=== PATIENT | female | born 1980 | race American Indian/Alaskan Native ===

== ENCOUNTER 2018-04-10 05:43 | Inpatient (IN) | payer MEDICAID, OTHER ==
[2018-04-10] MEDS ORDERED: Ondansetron 4 MG/2 ML SDV IV PRN (06:00)
[2018-04-10] MEDS ORDERED: Carboprost Tromethamine 250 MCG/1 ML Amp IM ONE (06:00)
[2018-04-10] MEDS ORDERED: Acetaminophen 325 MG Tab PO PRN (06:00)
[2018-04-10] MEDS ORDERED: Measles, Mumps & Rubella Vaccine 0.5 ML SDV SUBCUT ONE (06:00)
[2018-04-10] MEDS ORDERED: ePHEDrine 50 MG/ML SDV IVPUSH PRN (06:00)
[2018-04-10] MEDS ORDERED: Oxytocin/Normal Saline 30 UNIT/500 ML BAG IV SCH (06:00)
[2018-04-10] MEDS ORDERED: Tranexamic Acid 1,000 MG in Sodium Chloride 0.9% 100 ML IV PRN (06:00)
[2018-04-10] MEDS ORDERED: Misoprostol 400 MCG (4 X 100 MCG TAB) RECTAL PRN (06:00)
[2018-04-10] MEDS ORDERED: Methylergonovine 0.2 MG/1 ML Amp IM PRN (06:00)
[2018-04-10] MEDS ORDERED: ceFAZolin 2 GM in Premix Bag 1 BAG IV ONE (06:00)
[2018-04-10] MEDS ORDERED: Citric Acid/Sodium Citrate Solution 30 ML Cup PO ONE (06:00)
[2018-04-10] MEDS ORDERED: diphenhydrAMINE 50 MG/ML SDV IVPUSH PRN (06:00)
[2018-04-10] MEDS ORDERED: Naloxone 2 MG/2 ML Syringe IVPUSH PRN (06:00)
[2018-04-10] MEDS: Ferrous Sulfate 325 MG Tab PO SCH ×2 (06:03→10:53)
[2018-04-10] MEDS: Prenatal Multivitamin with Calcium/Folic Acid/Iron Tab PO SCH ×2 (06:03→10:53)
[2018-04-10] MEDS: Simethicone 80 MG Tab.Chew PO SCH ×5 (06:03→21:09)
[2018-04-10] MEDS: Lactated Ringers 1,000 ML IV SCH ×3 (06:11→19:28)
[2018-04-10] MEDS ORDERED: Oxytocin/Normal Saline 60 UNIT/1,000 ML BAG ONE (07:16)
[2018-04-10] MEDS ORDERED: Oxytocin/Normal Saline 30 UNIT/500 ML BAG IV ONE (14:49)
[2018-04-10] MEDS ORDERED: Bupivacaine 0.75%/D5W 2 ML Amp INJECT ONE (14:52)
[2018-04-10] MEDS ORDERED: Ondansetron 4 MG/2 ML SDV IV ONE (14:52)
[2018-04-10] MEDS ORDERED: ePHEDrine 50 MG/ML SDV IV ONE (14:52)
[2018-04-10] MEDS ORDERED: Ketorolac 30 MG/ML SDV IVPUSH ONE (14:52)
[2018-04-10] MEDS ORDERED: Dexamethasone 4 MG/ML SDV IV ONE (14:52)
[2018-04-10] MEDS: Ketorolac 30 MG/ML SDV IVPUSH SCH ×2 (14:54→21:08)
--- NOTE | 2018-04-10 15:17 | OBOUT ---
DATE: 04/10/2018 DATE AND TIME OF NST: Date: 04/10/2018. Time: 6:55 to 7:09. REASON FOR NST: 1. Intrauterine 37 and 2/7 weeks, confirmed with 22 and 1/7 weeks' ultrasound. 2. Gestational diabetes mellitus, uncontrolled with medicines with sugar of 94 upon admission. 3. Gestational hypertension versus preeclampsia versus transient hypertension. 4. Previous x3, requests repeat low transverse . 5. Abnormal quad screen. Seen MFM, deferred, wanting further testing other than ultrasound with ultrasound revealing no concerns. 6. Advanced maternal age. 7. ASC-H on Pap smear in this . 8. 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 We will follow up postnatally Urology. 9. G8, P6-0-1-6. NST INTERPRETATION: During this time period, heart tone baseline is approximately 115 to 120, and there are at least two 15 x 15 beats per minute accelerations, making this strip reactive. It is also noted to be reassuring. Tocometer reveals potential two contractions minimally felt by patient. Blood pressure upon admission 157/98, heart rate 82, temperature 97.5. Recheck 151/90 blood pressure with heart rate 83. Other recheck blood pressure 148/95 with a heart rate of 75. Most recent blood pressure 148/84 with heart rate 74. ASSESSMENT: 1. Nonstress test, reactive and reassuring. 2. Tocometer with contractions. PLAN: PIH panels will be ordered. The patient here for her repeat low transverse due to the above risk factors. We will do the PIH panel as well and follow clinically and closely. Her CBC has returned now. CBC reveals white cell count 6.8, hemoglobin 9.8, platelets 347, and her sugar upon admission was 94. We will proceed to the OR as soon as crew is ready and available. Please see H and P for further details as well done through Done.. Records were called for, reviewed, and summarized through this, as well as review of systems obtained. Please see a scanned in H and P for further details. [facility] /[id number]
[2018-04-10] MEDS: Acetaminophen/oxyCODONE 325-5 MG Tab PO PRN (19:36)
[2018-04-10] MEDS: Docusate Sodium 100 MG Cap PO PRN (21:09)
[2018-04-11] MEDS: Lactated Ringers 1,000 ML IV SCH (02:54)
[2018-04-11] MEDS: Ketorolac 30 MG/ML SDV IVPUSH SCH (02:55)
--- NOTE | 2018-04-11 09:08 | PCM.PNPP ---
- General Info Date of Service: 04/11/18 [facility] Subjective Update: Ber[facility] is POD1 from [facility] without labor. She had gHTN and gDM which was poorly controlled. She is doing well post surgery. She has been out of bed. Her thorne has not been removed. Pain controlled with narcotic pain medication. No bowel movements. Lochia normal in amount. No headaches, vision changes, chest pain, shortness of breath, leg swelling. Functional Status: Reports: Pain Controlled - General Info Date of Service: 04/11/18 - Patient Data Vital Signs - Most Recent: Last Vital Signs Temp 36.9 C 04/11/18 08:00 Pulse 71 04/11/18 08:00 Resp 18 04/11/18 08:00 BP 114/71 04/11/18 08:00 Pulse Ox 97 04/11/18 08:00 Weight - Most Recent: 100.698 kg I&O - Last 24 Hours: Intake & Output 04/10/18 04/11/18 04/11/18 22:59 06:59 14:59 Intake Total 1400 Output Total 1300 325 Balance 100 -325 Lab Results - Last 24 Hours: Laboratory Results - last 24 hr 04/10/18 04/11/18 Range/Units 08:26 06:00 WBC 9.3 (5.0-10.0) 10^3/uL RBC 3.36 L (4.2-5.4) 10^6/uL Hgb 8.1 L D (12.0-16.0) g/dL Hct 26.4 L (37.0-47.0) % MCV 78.6 L (80-100) fL MCH 24.1 L (27.0-34.0) pg MCHC 30.7 L (33.0-35.0) g/dL Plt Count 291 (150-450) 10^3/uL Urine Color Yellow (YELLOW) Urine Appearance Clear (CLEAR) Urine pH 7.0 (5.0-9.0) Ur Specific Pettus 1.015 (1.005-1.030) Urine Protein Negative (NEGATIVE) Urine Glucose (UA) Negative (NEGATIVE) Urine Ketones Negative (NEGATIVE) Urine Occult Blood Negative (NEGATIVE) Urine Nitrite Negative (NEGATIVE) Urine Bilirubin Negative (NEGATIVE) Urine Urobilinogen 1.0 (0.2-1.0) mg/dL Ur Leukocyte Esterase Negative (NEGATIVE) Med Orders - Current: Current Medications Acetaminophen (Tylenol) 650 mg PO Q6H PRN PRN Reason: mild pain or fever Diphenhydramine HCl (Benadryl) 25 mg IVPUSH Q6H PRN PRN Reason: Itching or Nausea Docusate Sodium (Colace) 100 mg PO Q12H PRN PRN Reason: Constipation Last Admin: 04/10/18 21:09 Dose: 100 mg Ephedrine Sulfate (Ephedrine Sulfate) 5 mg IVPUSH SEECOMMENT PRN PRN Reason: Other Ferrous Sulfate (Ferrous Sulfate) 325 mg PO BRK [facility] Last Admin: 04/10/18 10:53 Dose: Not Given Lactated Ringer's (Ringers, Lactated) 1,000 mls @ 125 mls/hr IV ASDIRECTED [facility] Last Admin: 04/11/18 02:54 Dose: 125 mls/hr Oxytocin/Sodium Chloride (Pitocin In Ns 30 Unit/500 Ml) 30 unit in 500 mls @ 500 mls/hr IV TITRATE [facility]; Protocol Last Titration: 04/10/18 12:45 Dose: 0 munits/min, 0 mls/hr Tranexamic Acid 1,000 mg/ (Sodium Chloride) 110 mls @ 660 mls/hr IV ONETIME PRN PRN Reason: Bleeding Ibuprofen (Motrin) 800 mg PO Q8H PRN PRN Reason: mild pain or fever Methylergonovine Maleate (Methergine) 0.2 mg IM ONETIME PRN PRN Reason: Excessive Vaginal Bleeding Misoprostol (Cytotec) 800 mcg RECTAL ASDIRECTED PRN PRN Reason: Excessive bleeding Naloxone HCl (Narcan) 0.1 mg IVPUSH SEECOMMENT PRN PRN Reason: Respiratory Depression Ondansetron HCl (Zofran) 4 mg IV Q4H PRN PRN Reason: Nausea/Vomiting Oxycodone/Acetaminophen (Percocet 325-5 Mg) 1 tab PO Q4H PRN PRN Reason: Pain (moderate 4-6) Last Admin: 04/10/18 19:36 Dose: 1 tab Oxycodone/Acetaminophen (Percocet 325-5 Mg) 2 tab PO Q4H PRN PRN Reason: Pain (moderate 4-6) Prenat Multivit/Barry/Iron/Folic Ac ( Plus Iron) 1 each PO DAILY [facility] Last Admin: 04/10/18 10:53 Dose: Not Given Simethicone (Simethicone) 160 mg PO QID [facility] Last Admin: 04/10/18 21:09 Dose: 160 mg Discontinued Medications Bupivacaine HCl/Dextrose (Marcaine 0.75% Spinal) 2 ml INJECT .STK-MED ONE Stop: 04/10/18 14:53 Carboprost Tromethamine (Hemabate Ds) 250 mcg IM ONETIME ONE Stop: 04/10/18 06:01 Last Admin: 04/10/18 21:29 Dose: Not Given Citric Acid/Sodium Citrate (Bicitra Solution) 30 ml PO ONETIME ONE Stop: 04/10/18 06:01 Last Admin: 04/10/18 07:17 Dose: 30 ml Dexamethasone (Dexamethasone) 8 mg IV .STK-MED ONE Stop: 04/10/18 14:53 Ephedrine Sulfate (Ephedrine Sulfate) 20 mg IV .STK-MED ONE Stop: 04/10/18 14:53 Cefazolin Sodium/Dextrose 2 gm (/ Premix) 50 mls @ 100 mls/hr IV ONETIME ONE Stop: 04/10/18 06:29 Last Admin: 04/10/18 08:15 Dose: 100 mls/hr Oxytocin/Sodium Chloride (Pitocin In Ns 30 Unit/500 Ml) Confirm Administered Dose 60 unit in 1,000 mls @ as directed .ROUTE .STK-MED ONE Stop: 04/10/18 07:17 Oxytocin/Sodium Chloride (Pitocin In Ns 30 Unit/500 Ml) 30 unit in 500 mls @ as directed IV .STK-MED ONE Stop: 04/10/18 14:50 Ketorolac Tromethamine (Toradol) 15 mg IVPUSH Q6H [facility] Stop: 04/11/18 03:01 Last Admin: 04/11/18 02:55 Dose: 15 mg Ketorolac Tromethamine (Toradol) 30 mg IVPUSH .STK-MED ONE Stop: 04/10/18 14:53 Lidocaine HCl (Xylocaine-Mpf 1%) 1 ml .XX .STK-MED ONE Stop: 04/10/18 14:53 Measles/Mumps/Rubella Vaccine Live (M-M-R Ii Vaccine) 0.5 ml SUBCUT .ONCE ONE Stop: 04/10/18 06:01 Ondansetron HCl (Zofran) 4 mg IV .STK-MED ONE Stop: 04/10/18 14:53 Sodium Bicarbonate (Sodium Bicarbonate 4.2%) 0.5 meq .XX .STK-MED ONE Stop: 04/10/18 14:53 - Infant Interaction Disposition, : Sharon to Nursery Support Person: Significant Other - Recovery Exam Fundal Tone: Firm Fundal Level: At Umbilicus Fundal Placement: Midline Lochia Amount: Small Lochia Color: Rubra/Red Perineum Description: Intact, Minimal Bruising/Swelling Episiotomy/Laceration: None Bladder Status: Nonpalpable, Indwelling Catheter in Place Urinary Elimination: Indwelling Catheter - Exam General: Alert, Oriented HEENT: Pupils Equal Neck: Supple Lungs: Clear to Auscultation, Normal Respiratory Effort Cardiovascular: Regular Rate, Regular Rhythm GI/Abdominal Exam: Normal Bowel Sounds, Soft, Non-Tender, No Organomegaly, No Distention, No Abnormal Bruit, No Mass, Pelvis Stable Extremities: Normal Inspection, Normal Range of Motion, Non-Tender, No Pedal Edema, Normal Capillary Refill Skin: Warm, Dry, Intact Wound/Incisions: Healing Well, Dressing Dry and Intact Neurological: No New Focal Deficit Psy/Mental Status: Alert, Normal Affect, Normal Mood - Problem List Review Problem List Initiated/Reviewed/Updated: Yes - Assessment Assessment:: POD1 rLTCS gDM gHTN - Plan Plan:: POD1 rLTCS Routine post op cares Remove thorne today Encourage ambulation Patient is not nursing Pain control with narcotic/ibuprofen/tylenol Post op hemoglobin 8.1, start iron, recheck in 2 days gDM Will check fasting sugar tomorrow AM gHTN Resolved post , monitor
[2018-04-11] MEDS: Acetaminophen/oxyCODONE 325-5 MG Tab PO PRN ×2 (09:53→16:56)
[2018-04-11] MEDS: Prenatal Multivitamin with Calcium/Folic Acid/Iron Tab PO SCH (09:55)
[2018-04-11] MEDS: Ferrous Sulfate 325 MG Tab PO SCH (09:55)
[2018-04-11] MEDS: Simethicone 80 MG Tab.Chew PO SCH ×4 (09:56→20:43)
[2018-04-11] MEDS: Ibuprofen 800 MG Tab PO PRN ×2 (11:13→19:38)
--- NOTE | 2018-04-11 17:05 | PN ---
DATE: 04/11/2018 The patient is postoperative day #1 from her fourth repeat . The patient also had gestational diabetes and was on metformin. I did see this patient in conjunction with resident Dr. Grimm. The patient is now tolerating p.o., ambulating, voiding, has good pain control. She is already on iron for anemia. The patient does still desire fertility. PHYSICAL EXAMINATION: Vital Signs: The patient is afebrile. Heart rate 69 to 71, blood pressure 95 to 124 over 60 to 72, respiratory rate 16 to 18, O2 saturation 97%. The patient's hemoglobin is 8.1 from 9.8 predelivery consistent with acute on chronic blood loss anemia. The patient's platelets are good, white count is 9.3. The patient is O positive. Rubella nonimmune. The patient's. ABDOMEN: Benign. Incision is healing well. ASSESSMENT AND PLAN: Postoperative day #1, status post repeat . Mom and baby are both doing well. I would like to get at least 1 postprandial blood sugar today and a fasting blood glucose tomorrow to see how her sugars are controlled since the metformin has been stopped, otherwise we will continue postoperative care. [facility] /[id number] ZAIN
[2018-04-12] MEDS: Acetaminophen/oxyCODONE 325-5 MG Tab PO PRN ×5 (00:03→23:32)
--- NOTE | 2018-04-12 05:31 | PCM.PNPP ---
- General Info Date of Service: 04/12/18 [facility] Subjective Update: Beronica is POD2 from [facility] without labor. She had gHTN and gDM which was poorly controlled. She is doing well post surgery. She has been out of bed. Her thorne has been removed. Pain controlled with narcotic pain medication. No bowel movements. Lochia normal in amount. No headaches, vision changes, chest pain, shortness of breath, leg swelling. Sugars have been good post as has her BP. Functional Status: Reports: Pain Controlled - Patient Data Vital Signs - Most Recent: Last Vital Signs Temp 36.6 C 04/12/18 00:00 Pulse 77 04/12/18 00:00 Resp 18 04/12/18 00:00 BP 122/67 04/12/18 00:00 Pulse Ox 97 04/12/18 00:00 Weight - Most Recent: 100.698 kg I&O - Last 24 Hours: Intake & Output 04/11/18 04/11/18 04/12/18 14:59 22:59 06:59 Intake Total 690 Output Total 700 Balance -10 Lab Results - Last 24 Hours: Laboratory Results - last 24 hr 04/11/18 04/11/18 Range/Units 06:00 21:32 WBC 9.3 (5.0-10.0) 10^3/uL RBC 3.36 L (4.2-5.4) 10^6/uL Hgb 8.1 L D (12.0-16.0) g/dL Hct 26.4 L (37.0-47.0) % MCV 78.6 L (80-100) fL MCH 24.1 L (27.0-34.0) pg MCHC 30.7 L (33.0-35.0) g/dL Plt Count 291 (150-450) 10^3/uL POC Glucose 85 (70-105) mg/dl Med Orders - Current: Current Medications Acetaminophen (Tylenol) 650 mg PO Q6H PRN PRN Reason: mild pain or fever Diphenhydramine HCl (Benadryl) 25 mg IVPUSH Q6H PRN PRN Reason: Itching or Nausea Docusate Sodium (Colace) 100 mg PO Q12H PRN PRN Reason: Constipation Last Admin: 04/10/18 21:09 Dose: 100 mg Ephedrine Sulfate (Ephedrine Sulfate) 5 mg IVPUSH SEECOMMENT PRN PRN Reason: Other Ferrous Sulfate (Ferrous Sulfate) 325 mg PO BRK [facility] Last Admin: 04/11/18 09:55 Dose: 325 mg Lactated Ringer's (Ringers, Lactated) 1,000 mls @ 125 mls/hr IV ASDIRECTED [facility] Last Infusion: 04/11/18 13:01 Dose: Infused Oxytocin/Sodium Chloride (Pitocin In Ns 30 Unit/500 Ml) 30 unit in 500 mls @ 500 mls/hr IV TITRATE [facility]; Protocol Last Titration: 04/10/18 12:45 Dose: 0 munits/min, 0 mls/hr Tranexamic Acid 1,000 mg/ (Sodium Chloride) 110 mls @ 660 mls/hr IV ONETIME PRN PRN Reason: Bleeding Ibuprofen (Motrin) 800 mg PO Q8H PRN PRN Reason: mild pain or fever Last Admin: 04/11/18 19:38 Dose: 800 mg Methylergonovine Maleate (Methergine) 0.2 mg IM ONETIME PRN PRN Reason: Excessive Vaginal Bleeding Misoprostol (Cytotec) 800 mcg RECTAL ASDIRECTED PRN PRN Reason: Excessive bleeding Naloxone HCl (Narcan) 0.1 mg IVPUSH SEECOMMENT PRN PRN Reason: Respiratory Depression Ondansetron HCl (Zofran) 4 mg IV Q4H PRN PRN Reason: Nausea/Vomiting Oxycodone/Acetaminophen (Percocet 325-5 Mg) 1 tab PO Q4H PRN PRN Reason: Pain (moderate 4-6) Last Admin: 04/11/18 16:56 Dose: 1 tab Oxycodone/Acetaminophen (Percocet 325-5 Mg) 2 tab PO Q4H PRN PRN Reason: Pain (moderate 4-6) Last Admin: 04/12/18 00:03 Dose: 2 tab Prenat Multivit/Donley/Iron/Folic Ac ( Plus Iron) 1 each PO DAILY [facility] Last Admin: 04/11/18 09:55 Dose: 1 each Simethicone (Simethicone) 160 mg PO QID [facility] Last Admin: 04/11/18 20:43 Dose: 160 mg Discontinued Medications Bupivacaine HCl/Dextrose (Marcaine 0.75% Spinal) 2 ml INJECT .STK-MED ONE Stop: 04/10/18 14:53 Carboprost Tromethamine (Hemabate Ds) 250 mcg IM ONETIME ONE Stop: 04/10/18 06:01 Last Admin: 04/10/18 21:29 Dose: Not Given Citric Acid/Sodium Citrate (Bicitra Solution) 30 ml PO ONETIME ONE Stop: 04/10/18 06:01 Last Admin: 04/10/18 07:17 Dose: 30 ml Dexamethasone (Dexamethasone) 8 mg IV .STK-MED ONE Stop: 04/10/18 14:53 Ephedrine Sulfate (Ephedrine Sulfate) 20 mg IV .STK-MED ONE Stop: 04/10/18 14:53 Cefazolin Sodium/Dextrose 2 gm (/ Premix) 50 mls @ 100 mls/hr IV ONETIME ONE Stop: 04/10/18 06:29 Last Admin: 04/10/18 08:15 Dose: 100 mls/hr Oxytocin/Sodium Chloride (Pitocin In Ns 30 Unit/500 Ml) Confirm Administered Dose 60 unit in 1,000 mls @ as directed .ROUTE .STK-MED ONE Stop: 04/10/18 07:17 Oxytocin/Sodium Chloride (Pitocin In Ns 30 Unit/500 Ml) 30 unit in 500 mls @ as directed IV .STK-MED ONE Stop: 04/10/18 14:50 Ketorolac Tromethamine (Toradol) 15 mg IVPUSH Q6H [facility] Stop: 04/11/18 03:01 Last Admin: 04/11/18 02:55 Dose: 15 mg Ketorolac Tromethamine (Toradol) 30 mg IVPUSH .STK-MED ONE Stop: 04/10/18 14:53 Lidocaine HCl (Xylocaine-Mpf 1%) 1 ml .XX .STK-MED ONE Stop: 04/10/18 14:53 Measles/Mumps/Rubella Vaccine Live (M-M-R Ii Vaccine) 0.5 ml SUBCUT .ONCE ONE Stop: 04/10/18 06:01 Ondansetron HCl (Zofran) 4 mg IV .STK-MED ONE Stop: 04/10/18 14:53 Sodium Bicarbonate (Sodium Bicarbonate 4.2%) 0.5 meq .XX .STK-MED ONE Stop: 04/10/18 14:53 - Infant Interaction Disposition, : Tinnie to Nursery Support Person: Significant Other - Recovery Exam Fundal Tone: Firm Fundal Level: At Umbilicus Fundal Placement: Midline Lochia Amount: Small Lochia Color: Rubra/Red Perineum Description: Intact, Minimal Bruising/Swelling Episiotomy/Laceration: None Bladder Status: Nonpalpable Urinary Elimination: Voided - Exam General: Alert, Oriented HEENT: Pupils Equal Neck: Supple Lungs: Clear to Auscultation, Normal Respiratory Effort Cardiovascular: Regular Rate, Regular Rhythm GI/Abdominal Exam: Normal Bowel Sounds, Soft, Non-Tender, No Organomegaly, No Distention, No Abnormal Bruit, No Mass, Pelvis Stable Extremities: Normal Inspection, Normal Range of Motion, Non-Tender, No Pedal Edema, Normal Capillary Refill Skin: Warm, Dry, Intact Wound/Incisions: Healing Well Neurological: No New Focal Deficit Psy/Mental Status: Alert, Normal Affect, Normal Mood - Problem List & Annotations (1) Status post repeat low transverse section SNOMED Code(s): 046757867, 155592823, 750487406, 289654287 Code(s): Z98.891 - HISTORY OF UTERINE SCAR FROM PREVIOUS SURGERY Status: Acute Current Visit: Yes (2) Gestational diabetes SNOMED Code(s): 51035605 Code(s): O24.419 - GESTATIONAL DIABETES MELLITUS IN , UNSP CONTROL Status: Acute Current Visit: Yes (3) Gestational hypertension SNOMED Code(s): 44558769 Code(s): O13.9 - GESTATIONAL HTN W/O SIGNIFICANT PROTEINURIA, UNSP TRIMESTER Status: Acute Current Visit: Yes - Problem List Review Problem List Initiated/Reviewed/Updated: Yes - My Orders Last 24 Hours: My Active Orders 04/11/18 09:22 POC Glucose [Blood Glucose Check, Bedside] [] TIDAC - Assessment Assessment:: POD2 rLTCS gDM gHTN - Plan Plan:: POD2 rLTCS Routine post op cares Encourage ambulation Patient is not nursing Pain control with narcotic/ibuprofen/tylenol Post op hemoglobin 8.1, start iron, recheck tomorrow gDM Sugars have been good, will check fasting this morning gHTN Resolved post , monitor
[2018-04-12] MEDS: Ferrous Sulfate 325 MG Tab PO SCH (09:18)
[2018-04-12] MEDS: Prenatal Multivitamin with Calcium/Folic Acid/Iron Tab PO SCH (09:19)
[2018-04-12] MEDS: Ibuprofen 800 MG Tab PO PRN (09:19)
[2018-04-12] MEDS: Simethicone 80 MG Tab.Chew PO SCH ×4 (09:19→21:15)
[2018-04-12] MEDS: Docusate Sodium 100 MG Cap PO PRN (09:19)
--- NOTE | 2018-04-12 15:41 | PN ---
DATE: 04/12/2018 SUBJECTIVE: The patient is now postoperative day #2 from a repeat . This is her fourth . Her and baby are both doing well. Her was complicated by gestational diabetes. She did use metformin but has been off that since delivery. The patient is now tolerating p.o., ambulating, voiding, has good pain control. PHYSICAL EXAMINATION: Vital Signs: The patient is on physical exam, afebrile, heart rate 77 and 93, blood pressure 106 to 123 over 67 to 88, respiratory rate 16 to 18, O2 saturation 97-98% on room air. The patient did have a postprandial blood glucose performed yesterday which was 85 and a fasting blood glucose which is 75 this morning, both of which are normal. The patient is O positive. She is rubella nonimmune. Again postoperative hemoglobin yesterday was 8.1, and she is on iron. Abdomen: Benign. The dressing appears well. Extremities: Have no tenderness, no edema. ASSESSMENT AND PLAN: Postoperative day #2, status post repeat with resolving gestational diabetes, likely discharge this patient to home tomorrow, and otherwise continue postoperative care. [facility] /[id number]
[2018-04-13] MEDS: Docusate Sodium 100 MG Cap PO PRN (04:29)
[2018-04-13] MEDS: Acetaminophen/oxyCODONE 325-5 MG Tab PO PRN ×2 (04:29→08:50)
--- NOTE | 2018-04-13 07:28 | OR ---
DATE: 04/10/2018 PREOPERATIVE DIAGNOSES: 1. Intrauterine at 37 and 2/7 weeks, confirmed with 22 and 1/7 weeks' ultrasound. 2. Gestational diabetes mellitus-uncontrolled despite medications with blood sugar 94 upon admission. 3. Gestational hypertension versus preeclampsia. Labs pending. 4. Previous x3, request for repeat low transverse . 5. Abnormal quad screen, deferred amniocentesis and NIPS with ultrasound with MFM without concerns. 6. Advanced maternal age. 7. ASC-H on Pap smear this last year. 8. 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 9. Rubella nonimmune. 10.Group B Streptococcus negative. 11. 8, para 6-0-1-6. POSTOPERATIVE DIAGNOSES: 1. Intrauterine at 37 and 2/7 weeks, confirmed with 22 and 1/7 weeks' ultrasound, delivered. 2. Gestational diabetes mellitus-uncontrolled despite medications with blood sugar 94 upon admission. 3. Gestational hypertension versus preeclampsia. Labs pending. 4. Previous x3, request repeat for low transverse . 5. Abnormal quad screen, deferred amniocentesis and NIPS with ultrasound with MFM without concerns. 6. Advanced maternal age. 7. ASC-H on Pap smear this last year. 8. 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 9. Rubella nonimmune. 10.Group B Streptococcus negative. 11. 8, para 6-0-1-6. 12.Thin lower uterine segment, window noted. 13.Nuchal cord x1, reduced bluntly at delivery. PROCEDURE PERFORMED: NST followed by repeat low transverse . ASSISTANTS: 1. Gladys Ulloa MD. 2. Yamilet Grimm PGY-3. ANESTHESIA: Spinal. ESTIMATED BLOOD LOSS: 300 mL. IV FLUIDS: 900 mL lactated Ringer's and 300 mL of Pitocin. URINE OUTPUT: 450 mL clear yellow. START: 0832 hours. UTERINE INCISION: 0836 hours. DELIVERY: 0836 hours. STOP: 0857 hours. FINDING: Male, scores of 7 and 8. Weight pending. DESCRIPTION OF PROCEDURE IN DETAIL: After proper consent was obtained, the patient was brought to the operating room where spinal anesthetic was administered. A Marrero was placed in the preop under sterile conditions. Abdomen was prepped and draped in normal sterile fashion, placed the patient in supine position with left lateral tilt. A skin incision was then made over lower abdomen transverse Pfannenstiel-type fashion. This was carried down the fascia and scored in the midline. The subcutaneous tissue was raked laterally bluntly, and fascial incision was extended in transverse fashion using electrocautery. Malinda clamps x2 used to grasp the superior aspect of the fascia and rectus muscles were dissected from the fascia using sharp and blunt technique. In a similar fashion, Malinda clamps x2 used to grasp the inferior portion of the incision; and rectus and pyramidalis muscles were dissected from the fascia using sharp and blunt technique. Rectus muscles were in the midline with blunt technique. Abdominal cavity was entered in blunt technique. Incision was extended superiorly and inferiorly with blunt technique. Zain O large retractor was then introduced and used. The lower uterine segment was identified with a very thin lower uterine segment with window being able to see vertex and hair. Incision was made on lower uterine segment at 0836 hours. Uterus was entered sharply. Clear fluid returned. The uterine incision was extended in transverse fashion using blunt technique. vertex was then delivered through the incision followed by rest of the infant with nuchal cord x1, reduced bluntly at delivery. Mouth and nares were suctioned on the patient's lap. Cord was doubly clamped and cut, and the infant was brought over to team. Then, approximately 10 mL of cord blood was obtained for labs. Placenta was then delivered with gentle cord traction and fundal massage. The uterine cavity was cleared of all blood clots and debris with a lap sponge. Sanders clamps used to grasp the uterine incision and this was closed in a running locked fashion and tied at lateral margins with 1-0 Vicryl. First inspection of the uterine incision revealed hemostasis. Zain O retractor was then removed, and paracolic gutters were then cleared of all blood clots and debris with lap sponge. Anterior cul-de-sac was then irrigated copiously and all blood clots and debris were removed. Second inspection of the uterine incision and anterior cul-de-sac revealed hemostasis. Rectus muscles were then reapproximated in midline with [id number] stitch using 1-0 Vicryl. Subfascial tissue was found to be hemostatic. Fascia closed in a running fashion and tied at lateral margins with 0 looped PDS. Subcutaneous tissue irrigated copiously, hemostasis reassured. Skin was reapproximated with medium kyrie. Sterile Aquacel dressing was applied. Uterine fundus was firm and massaged at the conclusion of the case at -1 below umbilicus. No immediate complications were noted. Sponge, lap, needle counts were correct. The patient received 2 g of Ancef preoperatively, as well as Pitocin per protocol. Toradol will be given at conclusion of the case for pain control. Mother and are currently stable. [facility] /[id number] ZAIN
--- NOTE | 2018-04-13 07:46 | PCM.DCSUM1 ---
<Yamilet Grimm - Last Filed: 04/13/18 07:41> Discharge Summary - Hospital Course Free Text/Narrative:: Beronica is POD3 from [facility] at 37w2d for uncontrolled gDM and gHTN. Since delivery her blood sugars and blood pressures have been well controlled. Her post- course has not been complicated. She is eating, drinking and ambulating well. Incisional pain is well controlled. She is not breast feeding. Bowel function has returned. No leg swelling. She does have a mild headache which is in her neck and worse when she sits up but this comes and goes. Bleeding is well controlled. - Discharge Data Discharge Date: 04/13/18 Discharge Disposition: Home, Self-Care 01 Condition: Good - Discharge Diagnosis/Problem(s) (1) Status post repeat low transverse section SNOMED Code(s): 759268074, [id number], [id number], [id number] ICD Code: Z98.891 - HISTORY OF UTERINE SCAR FROM PREVIOUS SURGERY Status: Acute Current Visit: Yes (2) Gestational diabetes SNOMED Code(s): 11077196 ICD Code: O24.419 - GESTATIONAL DIABETES MELLITUS IN , UNSP CONTROL Status: Acute Current Visit: Yes (3) Gestational hypertension SNOMED Code(s): 61067949 ICD Code: O13.9 - GESTATIONAL HTN W/O SIGNIFICANT PROTEINURIA, UNSP TRIMESTER Status: Acute Current Visit: Yes - Patient Summary/Data Operative Procedure(s) Performed: [facility] Labs Pending at D/C: cbc - Patient Instructions Diet: Regular Diet as Tolerated Activity: As Tolerated Showering/Bathing: May Shower Wound/Incision Care: Keep Operative Site/Wound Site Clean and Dry Notify Provider of: Fever, Increased Pain, Swelling and Redness, Drainage, Nausea and/or Vomiting - Discharge Plan Home Medications: Home Meds PNV95/Ferrous Fumarate/FA [Prenavite Tablet] 1 each PO DAILY 03/26/18 [History] metFORMIN [Glucophage XR] 1,000 mg PO BID 03/26/18 [History] Patient Handouts: Delivery, Care After - Discharge Summary/Plan Comment Discharge Summary/Plan Comment: Routine post-op and post cares discussed with patient Return to clinic in 2 weeks for incision check Discussed signs/symptoms that would prompt earlier follow up. Ferrous sulfate QOD for post- anemia. gHTN and gDM: resolved post . Yamilet Grimm MD PGYIII - Patient Data Vitals - Most Recent: Last Vital Signs Temp 36.4 C 04/13/18 04:00 Pulse 106 H 04/13/18 04:00 Resp 16 04/13/18 04:00 BP 126/81 04/13/18 04:00 Pulse Ox 95 04/13/18 04:00 Weight - Most Recent: 100.698 kg I&O - Last 24 hours: Intake & Output 04/12/18 04/13/18 04/13/18 22:59 06:59 14:59 Intake Total 400 Balance 400 Med Orders - Current: Current Medications Acetaminophen (Tylenol) 650 mg PO Q6H PRN PRN Reason: mild pain or fever Diphenhydramine HCl (Benadryl) 25 mg IVPUSH Q6H PRN PRN Reason: Itching or Nausea Docusate Sodium (Colace) 100 mg PO Q12H PRN PRN Reason: Constipation Last Admin: 04/13/18 04:29 Dose: 100 mg Ephedrine Sulfate (Ephedrine Sulfate) 5 mg IVPUSH SEECOMMENT PRN PRN Reason: Other Ferrous Sulfate (Ferrous Sulfate) 325 mg PO BRK ALIE Last Admin: 04/12/18 09:18 Dose: 325 mg Lactated Ringer's (Ringers, Lactated) 1,000 mls @ 125 mls/hr IV ASDIRECTED ALIE Last Infusion: 04/11/18 13:01 Dose: Infused Oxytocin/Sodium Chloride (Pitocin In Ns 30 Unit/500 Ml) 30 unit in 500 mls @ 500 mls/hr IV TITRATE ALIE; Protocol Last Titration: 04/10/18 12:45 Dose: 0 munits/min, 0 mls/hr Tranexamic Acid 1,000 mg/ (Sodium Chloride) 110 mls @ 660 mls/hr IV ONETIME PRN PRN Reason: Bleeding Ibuprofen (Motrin) 800 mg PO Q8H PRN PRN Reason: mild pain or fever Last Admin: 04/12/18 09:19 Dose: 800 mg Methylergonovine Maleate (Methergine) 0.2 mg IM ONETIME PRN PRN Reason: Excessive Vaginal Bleeding Misoprostol (Cytotec) 800 mcg RECTAL ASDIRECTED PRN PRN Reason: Excessive bleeding Naloxone HCl (Narcan) 0.1 mg IVPUSH SEECOMMENT PRN PRN Reason: Respiratory Depression Ondansetron HCl (Zofran) 4 mg IV Q4H PRN PRN Reason: Nausea/Vomiting Oxycodone/Acetaminophen (Percocet 325-5 Mg) 1 tab PO Q4H PRN PRN Reason: Pain (moderate 4-6) Last Admin: 04/11/18 16:56 Dose: 1 tab Oxycodone/Acetaminophen (Percocet 325-5 Mg) 2 tab PO Q4H PRN PRN Reason: Pain (moderate 4-6) Last Admin: 04/13/18 04:29 Dose: 2 tab Prenat Multivit/Wire Basket Maker/Iron/Folic Ac ( Plus Iron) 1 each PO DAILY [facility] Last Admin: 04/12/18 09:19 Dose: 1 each Simethicone (Simethicone) 160 mg PO QID [facility] Last Admin: 04/12/18 21:15 Dose: Not Given Discontinued Medications Bupivacaine HCl/Dextrose (Marcaine 0.75% Spinal) 2 ml INJECT .STK-MED ONE Stop: 04/10/18 14:53 Carboprost Tromethamine (Hemabate Ds) 250 mcg IM ONETIME ONE Stop: 04/10/18 06:01 Last Admin: 04/10/18 21:29 Dose: Not Given Citric Acid/Sodium Citrate (Bicitra Solution) 30 ml PO ONETIME ONE Stop: 04/10/18 06:01 Last Admin: 04/10/18 07:17 Dose: 30 ml Dexamethasone (Dexamethasone) 8 mg IV .STK-MED ONE Stop: 04/10/18 14:53 Ephedrine Sulfate (Ephedrine Sulfate) 20 mg IV .STK-MED ONE Stop: 04/10/18 14:53 Cefazolin Sodium/Dextrose 2 gm (/ Premix) 50 mls @ 100 mls/hr IV ONETIME ONE Stop: 04/10/18 06:29 Last Admin: 04/10/18 08:15 Dose: 100 mls/hr Oxytocin/Sodium Chloride (Pitocin In Ns 30 Unit/500 Ml) Confirm Administered Dose 60 unit in 1,000 mls @ as directed .ROUTE .STK-MED ONE Stop: 04/10/18 07:17 Oxytocin/Sodium Chloride (Pitocin In Ns 30 Unit/500 Ml) 30 unit in 500 mls @ as directed IV .STK-MED ONE Stop: 04/10/18 14:50 Ketorolac Tromethamine (Toradol) 15 mg IVPUSH Q6H ALIE Stop: 04/11/18 03:01 Last Admin: 04/11/18 02:55 Dose: 15 mg Ketorolac Tromethamine (Toradol) 30 mg IVPUSH .STK-MED ONE Stop: 04/10/18 14:53 Lidocaine HCl (Xylocaine-Mpf 1%) 1 ml .XX .STK-MED ONE Stop: 04/10/18 14:53 Measles/Mumps/Rubella Vaccine Live (M-M-R Ii Vaccine) 0.5 ml SUBCUT .ONCE ONE Stop: 04/10/18 06:01 Last Admin: 04/12/18 19:36 Dose: 0.5 ml Ondansetron HCl (Zofran) 4 mg IV .STK-MED ONE Stop: 04/10/18 14:53 Sodium Bicarbonate (Sodium Bicarbonate 4.2%) 0.5 meq .XX .STK-MED ONE Stop: 04/10/18 14:53 - Exam General: Reports: Alert, Oriented HEENT: Reports: Pupils Equal, Pupils Reactive, EOMI, Mucous Membr. Moist/[place] Neck: Reports: Supple Lungs: Reports: Clear to Auscultation, Normal Respiratory Effort Cardiovascular: Reports: Regular Rate, Regular Rhythm GI/Abdominal Exam: Normal Bowel Sounds, Soft, Non-Tender, No Organomegaly, No Distention, No Abnormal Bruit, No Mass Back Exam: Reports: Normal Inspection, Full Range of Motion Extremities: Normal Inspection, Normal Range of Motion, Non-Tender, No Pedal Edema, Normal Capillary Refill Skin: Reports: Warm, Dry, Intact Wound/Incisions: Reports: Healing Well, Dressing Dry and Intact Neurological: Reports: No New Focal Deficit Psy/Mental Status: Reports: Alert, Normal Affect, Normal Mood <Nicko Bowie - Last Filed: 04/13/18 08:39> Discharge Summary - Hospital Course Free Text/Narrative:: seen and agreed-DCW. - Patient Data Vitals - Most Recent: Last Vital Signs Temp 97.5 F 04/13/18 04:00 Pulse 106 H 04/13/18 04:00 Resp 16 04/13/18 04:00 BP 126/81 04/13/18 04:00 Pulse Ox 95 04/13/18 04:00 I&O - Last 24 hours: Intake & Output 04/12/18 04/13/18 04/13/18 22:59 06:59 14:59 Intake Total 400 Balance 400 Med Orders - Current: Current Medications Acetaminophen (Tylenol) 650 mg PO Q6H PRN PRN Reason: mild pain or fever Diphenhydramine HCl (Benadryl) 25 mg IVPUSH Q6H PRN PRN Reason: Itching or Nausea Docusate Sodium (Colace) 100 mg PO Q12H PRN PRN Reason: Constipation Last Admin: 04/13/18 04:29 Dose: 100 mg Ephedrine Sulfate (Ephedrine Sulfate) 5 mg IVPUSH SEECOMMENT PRN PRN Reason: Other Ferrous Sulfate (Ferrous Sulfate) 325 mg PO BRK ALIE Last Admin: 04/12/18 09:18 Dose: 325 mg Lactated Ringer's (Ringers, Lactated) 1,000 mls @ 125 mls/hr IV ASDIRECTED [facility] Last Infusion: 04/11/18 13:01 Dose: Infused Oxytocin/Sodium Chloride (Pitocin In Ns 30 Unit/500 Ml) 30 unit in 500 mls @ 500 mls/hr IV TITRATE [facility]; Protocol Last Titration: 04/10/18 12:45 Dose: 0 munits/min, 0 mls/hr Tranexamic Acid 1,000 mg/ (Sodium Chloride) 110 mls @ 660 mls/hr IV ONETIME PRN PRN Reason: Bleeding Ibuprofen (Motrin) 800 mg PO Q8H PRN PRN Reason: mild pain or fever Last Admin: 04/12/18 09:19 Dose: 800 mg Methylergonovine Maleate (Methergine) 0.2 mg IM ONETIME PRN PRN Reason: Excessive Vaginal Bleeding Misoprostol (Cytotec) 800 mcg RECTAL ASDIRECTED PRN PRN Reason: Excessive bleeding Naloxone HCl (Narcan) 0.1 mg IVPUSH SEECOMMENT PRN PRN Reason: Respiratory Depression Ondansetron HCl (Zofran) 4 mg IV Q4H PRN PRN Reason: Nausea/Vomiting Oxycodone/Acetaminophen (Percocet 325-5 Mg) 1 tab PO Q4H PRN PRN Reason: Pain (moderate 4-6) Last Admin: 04/11/18 16:56 Dose: 1 tab Oxycodone/Acetaminophen (Percocet 325-5 Mg) 2 tab PO Q4H PRN PRN Reason: Pain (moderate 4-6) Last Admin: 04/13/18 04:29 Dose: 2 tab Prenat Multivit/[place]old/Iron/Folic Ac ( Plus Iron) 1 each PO DAILY [facility] Last Admin: 04/12/18 09:19 Dose: 1 each Simethicone (Simethicone) 160 mg PO QID [facility] Last Admin: 04/12/18 21:15 Dose: Not Given Discontinued Medications Bupivacaine HCl/Dextrose (Marcaine 0.75% Spinal) 2 ml INJECT .STK-MED ONE Stop: 04/10/18 14:53 Carboprost Tromethamine (Hemabate Ds) 250 mcg IM ONETIME ONE Stop: 04/10/18 06:01 Last Admin: 04/10/18 21:29 Dose: Not Given Citric Acid/Sodium Citrate (Bicitra Solution) 30 ml PO ONETIME ONE Stop: 04/10/18 06:01 Last Admin: 04/10/18 07:17 Dose: 30 ml Dexamethasone (Dexamethasone) 8 mg IV .STK-MED ONE Stop: 04/10/18 14:53 Ephedrine Sulfate (Ephedrine Sulfate) 20 mg IV .STK-MED ONE Stop: 04/10/18 14:53 Cefazolin Sodium/Dextrose 2 gm (/ Premix) 50 mls @ 100 mls/hr IV ONETIME ONE Stop: 04/10/18 06:29 Last Admin: 04/10/18 08:15 Dose: 100 mls/hr Oxytocin/Sodium Chloride (Pitocin In Ns 30 Unit/500 Ml) Confirm Administered Dose 60 unit in 1,000 mls @ as directed .ROUTE .STK-MED ONE Stop: 04/10/18 07:17 Oxytocin/Sodium Chloride (Pitocin In Ns 30 Unit/500 Ml) 30 unit in 500 mls @ as directed IV .STK-MED ONE Stop: 04/10/18 14:50 Ketorolac Tromethamine (Toradol) 15 mg IVPUSH Q6H [facility] Stop: 04/11/18 03:01 Last Admin: 04/11/18 02:55 Dose: 15 mg Ketorolac Tromethamine (Toradol) 30 mg IVPUSH .STK-MED ONE Stop: 04/10/18 14:53 Lidocaine HCl (Xylocaine-Mpf 1%) 1 ml .XX .STK-MED ONE Stop: 04/10/18 14:53 Measles/Mumps/Rubella Vaccine Live (M-M-R Ii Vaccine) 0.5 ml SUBCUT .ONCE ONE Stop: 04/10/18 06:01 Last Admin: 04/12/18 19:36 Dose: 0.5 ml Ondansetron HCl (Zofran) 4 mg IV .STK-MED ONE Stop: 04/10/18 14:53 Sodium Bicarbonate (Sodium Bicarbonate 4.2%) 0.5 meq .XX .STK-MED ONE Stop: 04/10/18 14:53
[2018-04-13] MEDS: Prenatal Multivitamin with Calcium/Folic Acid/Iron Tab PO SCH (08:50)
[2018-04-13] MEDS: Ibuprofen 800 MG Tab PO PRN (08:51)
[2018-04-13] MEDS: Ferrous Sulfate 325 MG Tab PO SCH (08:51)
[2018-04-13] MEDS: Simethicone 80 MG Tab.Chew PO SCH (12:53)
== END 2018-04-13 13:00 | disposition home or self-care (01) | DRG 765 ==
LOC: DL.OB 05:43 → EDSTATUS 08:00 → OBSVTOIN 08:36 → DL.OB 08:36 → DL.MS 15:26
PROVIDERS: ADMIT Family Medicine; ATTEND Family Medicine
PROC: 10D00Z1 Extraction of Products of Conception, Low, Open Approach (ICD-10-PCS; principal; 2018-04-10)
DX: O34.211 Maternal care for low transverse scar from previous cesarean delivery (principal); D62 Acute posthemorrhagic anemia; Z3A.37 37 weeks gestation of pregnancy; Z37.0 Single live birth; O24.425 Gestational diabetes mellitus in childbirth, controlled by oral hypoglycemic drugs; O13.4 Gestational [pregnancy-induced] hypertension without significant proteinuria, complicating childbirth; O69.81X0 Labor and delivery complicated by cord around neck, without compression, not applicable or unspecified; O90.81 Anemia of the puerperium
CPT/HCPCS: 01961; 36415; 81003; 82565; 82962; 83615; 84450; 84460; 84520; 84550; 85027; 86850; 86900; 86901; 90707; A9270-GY; J0690; J1100; J1885; J2405; J2590; J7120

== ENCOUNTER 2018-08-29 11:50 | Emergency (ER) | payer MEDICAID ==
--- NOTE | 2018-09-01 08:59 | EDM.PDOC ---
Scribed by Tessa Reyes 09/01/18 0859 for Blas Velez MD ED HPI GENERAL MEDICAL PROBLEM - General Chief Complaint: ENT Problem Stated Complaint: SORE EARS,TROAT AND HEADACHE Time Seen by Provider: 08/29/18 11:52 Source of Information: Reports: Patient, RN, RN Notes Reviewed History Limitations: Reports: No Limitations - History of Present Illness INITIAL COMMENTS - FREE TEXT/NARRATIVE: Patient presents to ER with complaint that she got sick several days with sore throat, right ear pain and painful right neck lymph node. She thinks she has had some low grade fevers but has not measured her temperature. Denies abdominal pain, nausea or vomiting. Also admits to recurrent headache. Two of her sons had similar symptoms 1 or 2 weeks ago but they got better without treatment. Onset: Gradual Duration: Getting Worse Location: Reports: Other (throat) Quality: Reports: Ache Severity: Severe Improves with: Reports: None Worsens with: Reports: None Associated Symptoms: Reports: No Other Symptoms - Related Data Allergies Allergy/AdvReac Type Severity Reaction Status Date / Time No Known Allergies Allergy Verified 08/29/18 11:54 Home Meds: Home Meds . 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 ED EXAM, ENT - Physical Exam Exam: See Below Exam Limited By: No Limitations General Appearance: Alert, WD/WN, No Apparent Distress Eye Exam: Bilateral Eye: Normal Inspection Ears: Other (left TM normal. Right TM bulging with cloudy effusion, mild peripheral erythema. No perforation. No canal drainage. ) Nose: Normal Inspection, Normal Mucousa, No Blood Mouth/Throat: Other (right tonsillar swelling with erythema with some streaks of pharyngeal erythema. No exudates or lesions.) Head: Atraumatic, Normocephalic Neck: Full Range of Motion, Other (A large right submandibular lymphadenopathy tender to palpation. No nuchal rigidity.). No: Lymphadenopathy (L) Respiratory/Chest: No Respiratory Distress, Lungs Clear, Normal Breath Sounds, No Accessory Muscle Use, Chest Non-Tender Cardiovascular: Regular Rate, Rhythm GI/Abdominal: Normal Bowel Sounds, Soft, Non-Tender (Female) Exam: Deferred Rectal (Female) Exam: Deferred Extremities: Normal Inspection Neurological: Alert, Oriented, No Motor/Sensory Deficits Skin: Warm, Dry, Intact, Normal Color, No Rash Course - Vital Signs Last Recorded V/S: Last Vital Signs Temp 37.1 C 08/29/18 11:55 Pulse 81 08/29/18 11:55 Resp 16 08/29/18 11:55 BP 150/91 H 08/29/18 11:55 Pulse Ox 98 08/29/18 11:55 - Orders/Labs/Meds Labs: Rapid strep: Negative Departure - Departure Time of Disposition: 12:19 Disposition: Home, Self-Care 01 Condition: Good Clinical Impression: Tonsillitis, Lymphadenopathy of right cervical region Otitis media Qualifiers: Otitis media type: suppurative Chronicity: acute Laterality: bilateral Recurrence: not specified as recurrent Spontaneous tympanic membrane rupture: without spontaneous rupture Qualified Code(s): H66.003 - Acute suppurative otitis media without spontaneous rupture of ear drum, bilateral - Discharge Information *PRESCRIPTION DRUG MONITORING PROGRAM REVIEWED*: Not Applicable *COPY OF PRESCRIPTION DRUG MONITORING REPORT IN PATIENT BRENDA: Not Applicable Instructions: Tonsillitis, [id number], Otitis Media, Adult, [id number], Lymphadenopathy Forms: ED Department Discharge Additional Instructions: RX: Augmentin 875mg. RX: Prednisone 20mg. Frequent salt water gargles until improved. Cloraseptic spray or lozenges as needed for sore throat. Follow up in clinic if not improving in 3 to 4 days. I have read and agree with the documentation that has been completed regarding this visit. By signing this record, I attest that the documentation was completed in my physical presence and is an accurate record of the encounter.
== END 2018-08-29 12:24 | disposition home or self-care (01) ==
LOC: DL.ED 11:50
DX: J03.90 Acute tonsillitis, unspecified (principal); H66.003 Acute suppurative otitis media without spontaneous rupture of ear drum, bilateral
CPT/HCPCS: 87081; 87430; 99283

== ENCOUNTER 2019-02-21 10:07 | Emergency (ER) | payer MEDICAID ==
[2019-02-21] MEDS ORDERED: Lidocaine 1% with EPINEPHrine 1:100,000 20 ML MDV INJECT ONE (10:33)
[2019-02-21] MEDS ORDERED: Diphtheria,Pertussis(Acell),Tetanus Vaccine 0.5 ML SDV IM ONE (10:34)
--- NOTE | 2019-02-21 10:36 | EDM.PDOC ---
ED HPI GENERAL MEDICAL PROBLEM - General Chief Complaint: Skin Complaint Stated Complaint: SORE ON BACK [id number] Time Seen by Provider: 02/21/19 10:30 Source of Information: Reports: Patient History Limitations: Reports: No Limitations - History of Present Illness INITIAL COMMENTS - FREE TEXT/NARRATIVE: Patient comes emergency appointment today with complaints of a sore and questionable spider bite on her back. She woke up yesterday with a painful red raised area from sleep. It is slowly gotten bigger and more painful since that time. No fever no chills. She is unaware of when her last tetanus shot was. Right Middle Back Pain Score (Numeric/FACES): 7 - Related Data Allergies Allergy/AdvReac Type Severity Reaction Status Date / Time No Known Allergies Allergy Verified 02/21/19 10:18 Home Meds: Home Meds . 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 ED EXAM, SKIN/RASH Exam: See Below Exam Limited By: No Limitations General Appearance: Alert, WD/WN, No Apparent Distress Location, Skin: Back (On the right middle medial aspect of the back. There is an area proximally the size of a golf ball of induration and erythema. There is a central scab without any drainage. There is a small amount of cellulitis surrounding it. Rest of the back is unremarkable.) Associated features: Warmth, Tenderness, Swelling, Induration, Crusting ED SKIN PROCEDURES - I&D Site: back right middle medial Skin Prep: Providone-Iodine (Betadine) Local Anesthesia: Lidocaine: 1% Plain Local Anesthetic Volume: 5cc Area Incised With: 11 Blade Drainage: Purulent, Bloody, Small Amount Probed to Break Up Loculations: Yes Progress/Comments: Culture sent to lab. Course - Vital Signs Last Recorded V/S: Last Vital Signs Temp 36.5 C 02/21/19 10:15 Pulse 84 02/21/19 10:15 Resp 16 02/21/19 10:15 BP 136/70 02/21/19 10:15 Pulse Ox 100 02/21/19 10:15 - Orders/Labs/Meds Orders: Active Orders 24 hr Category Date Time Status Vaccines to be Administered [RC] PER UNIT ROUTINE Care 02/21/19 10:34 Active CULTURE WOUND [RM] Stat Lab 02/21/19 10:51 Ordered Meds: Medications Discontinued Medications Generic Name Dose Route Start Last Admin Trade Name Kevin PRN Reason Stop Dose Admin Diphtheria/Tetanus/Acell Pertussis 0.5 ml 02/21/19 10:34 Adacel IM 02/21/19 10:35 .ONCE ONE Lidocaine HCl 30 ml 02/21/19 10:50 Xylocaine-Mpf 1% INJECT 02/21/19 10:51 ONETIME ONE Lidocaine/Epinephrine 20 ml 02/21/19 10:33 Xylocaine 1% With Epinephrine 1:100,000 INJECT 02/21/19 10:34 ONETIME ONE Departure - Departure Time of Disposition: 11:01 Disposition: Home, Self-Care 01 Clinical Impression: Abscess - Discharge Information Instructions: Skin Abscess, [id number] Forms: ED Department Discharge Additional Instructions: Tylenol and or Ibuprofen as needed for pain discomfort. Warm packs to the area as much as possible. Atleast 4-6 times a day. Keep dressing in place. Bactrim DS, 1 tablet twice daily for the next 7 days. RX given to the patient. Return to the ED if new or worsening symptoms Follow up with PCP in the next 4-6 days if not improving sooner if worse. - My Orders Last 24 Hours: My Active Orders 02/21/19 10:34 Vaccines to be Administered [RC] PER UNIT ROUTINE 02/21/19 10:51 CULTURE WOUND [RM] Stat - Assessment/Plan Last 24 Hours: My Active Orders 02/21/19 10:34 Vaccines to be Administered [RC] PER UNIT ROUTINE 02/21/19 10:51 CULTURE WOUND [RM] Stat Assessment:: Abscess of the back. I&D Plan: Tylenol and or Ibuprofen as needed for pain discomfort. Warm packs to the area as much as possible. Atleast 4-6 times a day. Keep dressing in place. Bactrim DS, 1 tablet twice daily for the next 7 days. RX given to the patient. Return to the ED if new or worsening symptoms Follow up with PCP in the next 4-6 days if not improving sooner if worse.
[2019-02-21] MEDS ORDERED: Lidocaine 1% 30 ML SDV INJECT ONE (10:50)
[2019-02-21] MEDS ORDERED: Sulfamethoxazole/Trimethoprim 800-160 MG Tab PO ONE (11:09)
== END 2019-02-21 11:15 | disposition home or self-care (01) ==
LOC: DL.ED 10:07
DX: L02.212 Cutaneous abscess of back [any part, except buttock and flank] (principal); Z23 Encounter for immunization
CPT/HCPCS: 10060; 87070; 87077; 87186; 90471; 90715; 99283; A9270; J2001

== ENCOUNTER 2020-08-07 16:21 | Emergency (ER) | payer SELFPAY ==
[2020-08-07] MEDS ORDERED: Acetaminophen/HYDROcodone 325-5 MG Tab PO ONE (16:22)
[2020-08-07] MEDS ORDERED: Ondansetron 4 MG Tab.DIS PO ONE (16:22)
[2020-08-07] MEDS ORDERED: Sodium Chloride 0.9% 10 ML Syringe FLUSH PRN (16:54)
[2020-08-07] MEDS ORDERED: diphenhydrAMINE 50 MG/ML SDV IVPUSH ONE (16:54)
[2020-08-07] MEDS ORDERED: Ketorolac 30 MG/ML SDV IVPUSH ONE (16:54)
[2020-08-07] MEDS ORDERED: Lactated Ringers 1,000 ML IV ONE (16:57)
--- NOTE | 2020-08-07 16:58 | EDM.PDOC ---
ED HPI GENERAL MEDICAL PROBLEM - General Chief Complaint: Back Pain or Injury Stated Complaint: BACK PAIN Time Seen by Provider: 08/07/20 16:45 Source of Information: Reports: Patient History Limitations: Reports: No Limitations - History of Present Illness INITIAL COMMENTS - FREE TEXT/NARRATIVE: Patient comes emergency department today with complaints of right flank pain. For the past 2 days the patient has had intermittent stabbing squeezing right flank pain. Pain is gotten worse over the past couple of days. The pain is radiated around to the front to the right lower part of the abdomen. No hematuria dysuria or urinary frequency. No fever no chills. No other abdominal pain. No diarrhea. No vaginal discharge or drainage. No chest pain no shortness of breath or difficulty breathing. No COVID symptoms no COVID exposure. Middle Back Pain Score (Numeric/FACES): 7 - Related Data Allergies Allergy/AdvReac Type Severity Reaction Status Date / Time No Known Allergies Allergy Verified 08/07/20 16:29 Home Meds: Home Meds . 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[employer] CHASSIS REPAIR History: repeat c/section x3 Musculoskeletal History: Reports: None, Fracture Neurological History: Reports: None Psychiatric History: Reports: None Endocrine/Metabolic History: Reports: Diabetes, Gestational Hematologic History: Reports: None Immunologic History: Reports: None Oncologic (Cancer) History: Reports: None Dermatologic History: Reports: None - Infectious Disease History Infectious Disease History: Reports: None - Past Surgical History Head Surgeries/Procedures: Reports: None GI Surgical History: Reports: Cholecystectomy Social & Family History - Family History Family Medical History: Noncontributory - Tobacco Use Smoking Status *Q: Never Smoker Second Hand Smoke Exposure: No - Caffeine Use Caffeine Use: Reports: Coffee - Recreational Drug Use Recreational Drug Use: No - Living Situation & Occupation Living situation: Reports: with Family ED ROS GENERAL - Review of Systems Review Of Systems: Comprehensive ROS is negative, except as noted in HPI. ED EXAM, RENAL/ - Physical Exam Exam: See Below Exam Limited By: No Limitations General Appearance: Alert, WD/WN, Mild Distress Eye Exam: Bilateral Eye: EOMI, PERRL Respiratory/Chest: No Respiratory Distress, Lungs Clear, Normal Breath Sounds, Chest Non-Tender Cardiovascular: Normal Peripheral Pulses, Regular Rate, Rhythm GI/Abdominal: Normal Bowel Sounds, Soft, Non-Tender, No Organomegaly, No Distention, No Abnormal Bruit Back Exam: Full Range of Motion, CVA Tenderness (R). No: CVA Tenderness (L) Extremities: Normal Inspection, Normal Range of Motion, Normal Capillary Refill Neurological: Alert, Oriented, Normal Cognition, No Motor/Sensory Deficits Psychiatric: Normal Affect, Normal Mood Skin Exam: Warm, Dry, Intact, Normal Color Course - Vital Signs Last Recorded V/S: Last Vital Signs Temp 99.6 F 08/07/20 16:29 Pulse 98 08/07/20 16:29 Resp 18 08/07/20 16:29 BP 131/73 08/07/20 16:29 Pulse Ox 100 08/07/20 16:29 - Orders/Labs/Meds Orders: Active Orders 24 hr Category Date Time Status Peripheral IV Care [RC] . DIRECTED Care 08/07/20 16:54 Active Sodium Chloride 0.9% [Saline Flush] Med 08/07/20 16:54 Active 10 ml FLUSH ASDIRECTED PRN Peripheral IV Insertion Adult [OM.PC] Stat Oth 08/07/20 16:54 Ordered Medication Orders Sodium Chloride (Saline Flush) 10 ml FLUSH ASDIRECTED PRN PRN Reason: Keep Vein Open Last Admin: 08/07/20 17:36 Dose: 10 ml Documented by: ANAND Labs: Laboratory Tests 08/07/20 08/07/20 08/07/20 Range/Units 16:25 17:17 17:17 WBC 6.1 (5.0-10.0) 10^3/uL RBC 4.60 (4.2-5.4) 10^6/uL Hgb 10.1 L D (12.0-16.0) g/dL Hct 32.7 L (37.0-47.0) % MCV 71.1 L D (80-100) fL MCH 22.0 L (27.0-34.0) pg MCHC 30.9 L (33.0-35.0) g/dL Plt Count 330 (150-450) 10^3/uL Neut % (Auto) 80.2 H (42.2-75.2) % Lymph % (Auto) 14.7 L (20.5-50.1) % [place] % (Auto) 4.7 (2-8) % Eos % (Auto) 0.2 L (1.0-3.0) % Baso % (Auto) 0.2 (0.0-1.0) % Sodium 141 (136-145) mmol/L Potassium 3.5 (3.5-5.1) mmol/L Chloride 106 (98-107) mmol/L Carbon Dioxide 24 (21-32) mmol/L Anion Gap 14.5 H (7-13) mEq/L BUN 14 (7-18) mg/dL Creatinine 1.05 H (0.55-1.02) mg/dL Est Cr Clr Drug Dosing 62.73 mL/min Estimated GFR (MDRD) 59 BUN/Creatinine Ratio 13.3 (No establ ref range) Glucose 96 (74-99) mg/dL Calcium 7.5 L (8.5-10.1) mg/dL Total Bilirubin 0.4 (0.2-1.0) mg/dL AST 17 (15-37) U/L ALT 15 (14-59) U/L Alkaline Phosphatase 88 (46-116) U/L C-Reactive Protein (0.0-0.9) mg/dL Total Protein 7.2 (6.4-8.2) g/dL Albumin 2.9 L (3.4-5.0) g/dL Globulin 4.3 Albumin/Globulin Ratio 0.67 Urine Color Yellow (YELLOW) Urine Appearance Slightly cloudy (CLEAR) Urine pH 6.5 (5.0-9.0) Ur Specific [place] >= 1.030 (1.005-1.030) Urine Protein 100 H (NEGATIVE) Urine Glucose (UA) Negative (NEGATIVE) Urine Ketones Negative (NEGATIVE) Urine Occult Blood Negative (NEGATIVE) Urine Nitrite Positive H (NEGATIVE) Urine Bilirubin Negative (NEGATIVE) Urine Urobilinogen >=8.0 H (0.2-1.0) mg/dL Ur Leukocyte Esterase Small H (NEGATIVE) Urine RBC 5-10 H /HPF Urine WBC 20-30 H (0-5/HPF) /HPF Ur Epithelial Cells Many H (NOT SEEN) /HPF Urine Bacteria Moderate H (0-FEW/HPF) /HPF Urine Mucus Few H (NOT SEEN) /LPF 08/07/20 Range/Units 17:17 WBC (5.0-10.0) 10^3/uL RBC (4.2-5.4) 10^6/uL Hgb (12.0-16.0) g/dL Hct (37.0-47.0) % MCV (80-100) fL MCH (27.0-34.0) pg MCHC (33.0-35.0) g/dL Plt Count (150-450) 10^3/uL Neut % (Auto) (42.2-75.2) % Lymph % (Auto) (20.5-50.1) % [place] % (Auto) (2-8) % Eos % (Auto) (1.0-3.0) % Baso % (Auto) (0.0-1.0) % Sodium (136-145) mmol/L Potassium (3.5-5.1) mmol/L Chloride (98-107) mmol/L Carbon Dioxide (21-32) mmol/L Anion Gap (7-13) mEq/L BUN (7-18) mg/dL Creatinine (0.55-1.02) mg/dL Est Cr Clr Drug Dosing mL/min Estimated GFR (MDRD) BUN/Creatinine Ratio (No establ ref range) Glucose (74-99) mg/dL Calcium (8.5-10.1) mg/dL Total Bilirubin (0.2-1.0) mg/dL AST (15-37) U/L ALT (14-59) U/L Alkaline Phosphatase (46-116) U/L C-Reactive Protein 11.6 H (0.0-0.9) mg/dL Total Protein (6.4-8.2) g/dL Albumin (3.4-5.0) g/dL Globulin Albumin/Globulin Ratio Urine Color (YELLOW) Urine Appearance (CLEAR) Urine pH (5.0-9.0) Ur Specific [place] (1.005-1.030) Urine Protein (NEGATIVE) Urine Glucose (UA) (NEGATIVE) Urine Ketones (NEGATIVE) Urine Occult Blood (NEGATIVE) Urine Nitrite (NEGATIVE) Urine Bilirubin (NEGATIVE) Urine Urobilinogen (0.2-1.0) mg/dL Ur Leukocyte Esterase (NEGATIVE) Urine RBC /HPF Urine WBC (0-5/HPF) /HPF Ur Epithelial Cells (NOT SEEN) /HPF Urine Bacteria (0-FEW/HPF) /HPF Urine Mucus (NOT SEEN) /LPF Meds: Medications Generic Name Dose Route Start Last Admin Trade Name Kevin PRN Reason Stop Dose Admin Sodium Chloride 10 ml 08/07/20 16:54 08/07/20 17:36 Saline Flush FLUSH 10 ml ASDIRECTED PRN Administration Keep Vein Open Discontinued Medications Generic Name Dose Route Start Last Admin Trade Name Kevin PRN Reason Stop Dose Admin Diphenhydramine HCl 25 mg 08/07/20 16:54 08/07/20 17:34 Benadryl IVPUSH 08/07/20 16:55 25 mg ONETIME ONE Administration Lactated Ringer's 1,000 mls @ 1,000 mls/hr 08/07/20 16:57 08/07/20 17:36 Ringers, Lactated IV 08/07/20 17:56 1,000 mls/hr .BOLUS ONE Administration Ceftriaxone Sodium 1 gm/ 50 mls @ 100 mls/hr 08/07/20 17:36 08/07/20 17:42 Sodium Chloride IV 08/07/20 18:05 100 mls/hr ONETIME ONE Administration Ketorolac Tromethamine 30 mg 08/07/20 16:54 08/07/20 17:35 Toradol IVPUSH 08/07/20 16:55 30 mg ONETIME ONE Administration Orphenadrine Citrate 60 mg 08/07/20 16:54 08/07/20 17:36 Norflex IV 08/07/20 16:55 60 mg ONETIME ONE Administration - Re-Assessments/Exams Free Text/Narrative Re-Assessment/Exam: 08/07/20 18:21 Distally the patient was given a liter of LR wide open. Toradol 30 mg IV push. Norflex IV. And Benadryl IV. Her urinalysis is clearly infectious. Urine culture pending. Rocephin 1 g IV piggyback. Her white count is normal with a minimally elevated CRP. I have concerning for urinary tract infection in a year early pyelonephritis with the right CVA tenderness. Discharge her home with cefdinir and Zofran. Recheck if any fevers uncontrolled with Tylenol ibuprofen unable to keep her medications down at home. She is understanding this and her questions were answered. She does feel much better than when she initially arrived. Departure - Departure Time of Disposition: 18:05 Disposition: Home, Self-Care 01 Clinical Impression: UTI (urinary tract infection) Qualifiers: Urinary tract infection type: site unspecified Hematuria presence: with hematuria Qualified Code(s): N39.0 - Urinary tract infection, site not specified - Discharge Information Forms: ED Department Discharge Additional Instructions: Lots of fluids over the next few days. Rest take it easy. Tylenol and or Ibuprofen as needed for pain fever discomfort. Cefdinir 300mg, 1 tab twice daily for the next 7 days. Start Friday RX given to the patient. Finish the entire 7 days no matter what. RX given to the patient. Zofran ODT, 1 tab every 6 hrs as needed for nausea. Dispensed from the ED stock. and RX given to the patient. Recheck in the ED if new or worsening fever uncontrolled with above unable to keep medications down. Recheck in the clinic in the next 4-6 days if not improving sooner if worse. Sepsis Event Note (ED) - Evaluation Sepsis Screening Result: No Definite Risk - Focused Exam Vital Signs: Vital Signs Temp Pulse Resp BP Pulse Ox 08/07/20 16:29 99.6 F 98 18 131/73 100 - My Orders Last 24 Hours: My Active Orders 08/07/20 16:54 Peripheral IV Care [RC] . DIRECTED Sodium Chloride 0.9% [Saline Flush] 10 ml FLUSH ASDIRECTED PRN Peripheral IV Insertion Adult [OM.PC] Stat - Assessment/Plan Last 24 Hours: My Active Orders 08/07/20 16:54 Peripheral IV Care [RC] . DIRECTED Sodium Chloride 0.9% [Saline Flush] 10 ml FLUSH ASDIRECTED PRN Peripheral IV Insertion Adult [OM.PC] Stat Assessment:: UTI, ? early pyelonephritis. Plan: Lots of fluids over the next few days. Rest take it easy. Tylenol and or Ibuprofen as needed for pain fever discomfort. Cefdinir 300mg, 1 tab twice daily for the next 7 days. Start Friday RX given to the patient. Finish the entire 7 days no matter what. RX given to the patient. Zofran ODT, 1 tab every 6 hrs as needed for nausea. Dispensed from the ED stock. and RX given to the patient. Recheck in the ED if new or worsening fever uncontrolled with above unable to keep medications down. Recheck in the clinic in the next 4-6 days if not improving sooner if worse.
[2020-08-07] MEDS ORDERED: cefTRIAXone 1 GM in Sodium Chloride 0.9% 50 ML IV ONE (17:36)
[2020-08-07 18:10] LABS: ANION GAP 14.5 mEq/L (7-13)
[2020-08-07] MEDS ORDERED: Acetaminophen/HYDROcodone 325-5 MG Tab ONE (18:22)
[2020-08-07] MEDS ORDERED: Ondansetron 4 MG Tab.DIS ONE (18:22)
== END 2020-08-07 19:00 | disposition home or self-care (01) ==
LOC: DL.ED 16:21
DX: N39.0 Urinary tract infection, site not specified (principal); R31.9 Hematuria, unspecified; Z90.49 Acquired absence of other specified parts of digestive tract
CPT/HCPCS: 36415; 80053; 81001; 85025; 86140; 96365; 96375; 99284-25; A9270-GY; J0696; J1200; J1885; J2360; J7050; J7120

== ENCOUNTER 2020-08-14 23:00 | Emergency (ER) | payer SELFPAY ==
--- NOTE | 2020-08-14 23:40 | EDM.PDOC ---
ED HPI GENERAL MEDICAL PROBLEM - General Chief Complaint: Flank Pain Stated Complaint: RIGHT LOWER BACK, GROIN AREA Time Seen by Provider: 08/14/20 23:15 Source of Information: Reports: Patient History Limitations: Reports: No Limitations - History of Present Illness INITIAL COMMENTS - FREE TEXT/NARRATIVE: ED with c/o right flank pain, worse tonight. 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 Denies fever or chills No pain with urination. No nausea or vomiting. Right flank radiates around front. Right Flank Pain Score (Numeric/FACES): 8 - Related Data Allergies Allergy/AdvReac Type Severity Reaction Status Date / Time No Known Allergies Allergy Verified 08/07/20 16:29 Home Meds: Home Meds . 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 Musculoskeletal History: Reports: Fracture Neurological History: Reports: None Psychiatric History: Reports: None Endocrine/Metabolic History: Reports: Diabetes, Gestational Hematologic History: Reports: None Immunologic History: Reports: None Oncologic (Cancer) History: Reports: None Dermatologic History: Reports: None - Infectious Disease History Infectious Disease History: Reports: None - Past Surgical History Head Surgeries/Procedures: Reports: None GI Surgical History: Reports: Cholecystectomy Social & Family History - Family History Family Medical History: Noncontributory - Tobacco Use Smoking Status *Q: Never Smoker Second Hand Smoke Exposure: No - Caffeine Use Caffeine Use: Reports: Coffee - Recreational Drug Use Recreational Drug Use: No - Living Situation & Occupation Living situation: Reports: with Family ED ROS GENERAL - Review of Systems Review Of Systems: Comprehensive ROS is negative, except as noted in HPI. ED EXAM, RENAL/ - Physical Exam Exam: See Below Exam Limited By: No Limitations General Appearance: Alert, Mild Distress Eye Exam: Bilateral Eye: EOMI Ears: Normal External Exam, Hearing Grossly Normal Nose: Normal Inspection Throat/Mouth: Normal Inspection Head: Atraumatic, Normocephalic Neck: Normal Inspection Respiratory/Chest: No Respiratory Distress Cardiovascular: Normal Peripheral Pulses, Regular Rate, Rhythm GI/Abdominal: Normal Bowel Sounds, Soft, Non-Tender Back Exam: CVA Tenderness (R) Extremities: Normal Inspection Neurological: Alert, Oriented, Normal Cognition Psychiatric: Normal Affect Skin Exam: Warm, Dry, Intact, Normal Color Course - Vital Signs Last Recorded V/S: Last Vital Signs Temp 98.6 F 08/14/20 23:11 Pulse 70 08/14/20 23:11 Resp 18 08/14/20 23:11 BP 162/97 H 08/14/20 23:11 Pulse Ox 98 08/14/20 23:11 - Orders/Labs/Meds Labs: Laboratory Tests 08/14/20 08/14/20 08/14/20 Range/Units 23:23 23:23 23:23 WBC (5.0-10.0) 10^3/uL RBC (4.2-5.4) 10^6/uL Hgb (12.0-16.0) g/dL Hct (37.0-47.0) % MCV (80-100) fL MCH (27.0-34.0) pg MCHC (33.0-35.0) g/dL Plt Count (150-450) 10^3/uL Neut % (Auto) (42.2-75.2) % Lymph % (Auto) (20.5-50.1) % [place] % (Auto) (2-8) % Eos % (Auto) (1.0-3.0) % Baso % (Auto) (0.0-1.0) % Add Manual Diff Neutrophils % (Manual) (42-75) % Band Neutrophils % % Lymphocytes % (Manual) (20-50) % Monocytes % (Manual) (2-8) % Eosinophils % (Manual) (1-3) % Sodium (136-145) mmol/L Potassium (3.5-5.1) mmol/L Chloride (98-107) mmol/L Carbon Dioxide (21-32) mmol/L Anion Gap (7-13) mEq/L BUN (7-18) mg/dL Creatinine (0.55-1.02) mg/dL Est Cr Clr Drug Dosing mL/min Estimated GFR (MDRD) BUN/Creatinine Ratio (No establ ref range) Glucose (74-99) mg/dL Lactic Acid (0.4-2.0) mmol/L Calcium (8.5-10.1) mg/dL Total Bilirubin (0.2-1.0) mg/dL AST (15-37) U/L ALT (14-59) U/L Alkaline Phosphatase (46-116) U/L Total Protein (6.4-8.2) g/dL Albumin (3.4-5.0) g/dL Globulin Albumin/Globulin Ratio Urine Color [place] (YELLOW) Urine Appearance Slightly cloudy (CLEAR) Urine pH 6.5 (5.0-9.0) Ur Specific [place] >= 1.030 (1.005-1.030) Urine Protein Trace H (NEGATIVE) Urine Glucose (UA) Negative (NEGATIVE) Urine Ketones Negative (NEGATIVE) Urine Occult Blood Large H (NEGATIVE) Urine Nitrite Negative (NEGATIVE) Urine Bilirubin Negative (NEGATIVE) Urine Urobilinogen 1.0 (0.2-1.0) mg/dL Ur Leukocyte Esterase Negative (NEGATIVE) Urine RBC >100 H /HPF Urine WBC 0-5 (0-5/HPF) /HPF Ur Epithelial Cells Few (NOT SEEN) /HPF Amorphous Sediment Few (NOT SEEN) /HPF Urine Bacteria Rare (0-FEW/HPF) /HPF Urine Mucus Few H (NOT SEEN) /LPF Urine HCG, Qual Negative Urine Opiates Screen Negative (NEGATIVE) Ur Oxycodone Screen Negative (NEGATIVE) Urine Methadone Screen Negative (NEGATIVE) Ur Barbiturates Screen Negative (NEGATIVE) U Tricyclic Antidepress Negative (NEGATIVE) Ur Phencyclidine Scrn Negative (NEGATIVE) Ur Amphetamine Screen Negative (NEGATIVE) U Methamphetamines Scrn Negative (NEGATIVE) Urine MDMA Screen Negative (NEGATIVE) U Benzodiazepines Scrn Negative (NEGATIVE) Urine Cocaine Screen Negative (NEGATIVE) U Marijuana (THC) Screen Negative (NEGATIVE) 08/14/20 08/14/20 08/14/20 Range/Units 23:30 23:30 23:30 WBC 5.6 (5.0-10.0) 10^3/uL RBC 4.93 (4.2-5.4) 10^6/uL Hgb 10.8 L (12.0-16.0) g/dL Hct 35.6 L (37.0-47.0) % MCV 72.2 L (80-100) fL MCH 21.9 L (27.0-34.0) pg MCHC 30.3 L (33.0-35.0) g/dL Plt Count 582 H D (150-450) 10^3/uL Neut % (Auto) 53.7 (42.2-75.2) % Lymph % (Auto) 37.2 (20.5-50.1) % [place] % (Auto) 6.4 (2-8) % Eos % (Auto) 2.5 (1.0-3.0) % Baso % (Auto) 0.2 (0.0-1.0) % Add Manual Diff Yes Neutrophils % (Manual) 51 (42-75) % Band Neutrophils % 4 % Lymphocytes % (Manual) 35 (20-50) % Monocytes % (Manual) 7 (2-8) % Eosinophils % (Manual) 3 (1-3) % Sodium 141 (136-145) mmol/L Potassium 4.1 (3.5-5.1) mmol/L Chloride 105 (98-107) mmol/L Carbon Dioxide 29 (21-32) mmol/L Anion Gap 11.1 (7-13) mEq/L BUN 18 (7-18) mg/dL Creatinine 0.99 (0.55-1.02) mg/dL Est Cr Clr Drug Dosing 66.53 mL/min Estimated GFR (MDRD) > 60 BUN/Creatinine Ratio 18.2 (No establ ref range) Glucose 121 H (74-99) mg/dL Lactic Acid 1.3 (0.4-2.0) mmol/L Calcium 8.8 (8.5-10.1) mg/dL Total Bilirubin 0.3 (0.2-1.0) mg/dL AST 27 (15-37) U/L ALT 36 (14-59) U/L Alkaline Phosphatase 105 (46-116) U/L Total Protein 8.0 (6.4-8.2) g/dL Albumin 3.1 L (3.4-5.0) g/dL Globulin 4.9 Albumin/Globulin Ratio 0.63 Urine Color (YELLOW) Urine Appearance (CLEAR) Urine pH (5.0-9.0) Ur Specific [place] (1.005-1.030) Urine Protein (NEGATIVE) Urine Glucose (UA) (NEGATIVE) Urine Ketones (NEGATIVE) Urine Occult Blood (NEGATIVE) Urine Nitrite (NEGATIVE) Urine Bilirubin (NEGATIVE) Urine Urobilinogen (0.2-1.0) mg/dL Ur Leukocyte Esterase (NEGATIVE) Urine RBC /HPF Urine WBC (0-5/HPF) /HPF Ur Epithelial Cells (NOT SEEN) /HPF Amorphous Sediment (NOT SEEN) /HPF Urine Bacteria (0-FEW/HPF) /HPF Urine Mucus (NOT SEEN) /LPF Urine HCG, Qual Urine Opiates Screen (NEGATIVE) Ur Oxycodone Screen (NEGATIVE) Urine Methadone Screen (NEGATIVE) Ur Barbiturates Screen (NEGATIVE) U Tricyclic Antidepress (NEGATIVE) Ur Phencyclidine Scrn (NEGATIVE) Ur Amphetamine Screen (NEGATIVE) U Methamphetamines Scrn (NEGATIVE) Urine MDMA Screen (NEGATIVE) U Benzodiazepines Scrn (NEGATIVE) Urine Cocaine Screen (NEGATIVE) U Marijuana (THC) Screen (NEGATIVE) Meds: Medications Discontinued Medications Generic Name Dose Route Start Last Admin Trade Name Freq PRN Reason Stop Dose Admin Ciprofloxacin 500 mg 08/15/20 00:27 08/15/20 00:36 Ciprofloxacin Hcl PO 08/15/20 00:28 500 mg ONETIME ONE Administration Ketorolac Tromethamine 30 mg 08/15/20 00:27 08/15/20 00:36 Toradol IM 08/15/20 00:28 30 mg ONETIME ONE Administration Departure - Departure Time of Disposition: 00:29 Disposition: Home, Self-Care 01 Condition: Good Clinical Impression: Renal calculi, Renal colic on right side - Discharge Information *PRESCRIPTION DRUG MONITORING PROGRAM REVIEWED*: No *COPY OF PRESCRIPTION DRUG MONITORING REPORT IN PATIENT BRENDA: No Instructions: Kidney Stones Forms: ED Department Discharge Additional Instructions: increase fluids alternate tylenol and ibuprofen every 4 hours as needed 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
[2020-08-14 23:57] LABS: ANION GAP 11.1 mEq/L (7-13); CHLORIDE,CL 105 mmol/L (98-107); SODIUM,NA 141 mmol/L (136-145)
--- NOTE | 2020-08-15 00:15 | CT ---
PROCEDURE INFORMATION: Exam: CT Abdomen And Pelvis Without Contrast Exam date and time: 08/14/2020 11:57 PM Age: 39 years old Clinical indication: Abdominal pain; Flank; Right; Prior surgery; Surgery date: 6+ months; Surgery type: Cholecystectomy; Additional info: Hematuria TECHNIQUE: Imaging protocol: Computed tomography of the abdomen and pelvis without contrast. Radiation optimization: All CT scans at this facility use at least one of these dose optimization techniques: automated exposure control; mA and/or kV adjustment per patient size (includes targeted exams where dose is matched to clinical indication); or iterative reconstruction. COMPARISON: No relevant prior studies available. FINDINGS: Lungs: Mild atelectasis is noted within the left lung base. Liver: Normal. No mass. Gallbladder and bile ducts: The gallbladder has been removed. Pancreas: Normal. No ductal dilation. Spleen: Normal. No splenomegaly. Adrenals: Normal. No mass. Kidneys and ureters: A 0.1 x 0.2 cm stone is present within the bladder just distal to the right ureteropelvic junction. The right ureter is mildly dilated. There is mild right-sided hydronephrosis. Punctate calcification present within the lower pole left kidney measuring approximately 0.1 x 0.1 cm. No ureteral calculi are present on the left. Stomach and bowel: Unremarkable. No obstruction. No mucosal thickening. Appendix: No evidence of appendicitis. Intraperitoneal space: Unremarkable. No free air. No significant fluid collection. Vasculature: Unremarkable. No abdominal aortic aneurysm. Lymph nodes: Unremarkable. No enlarged lymph nodes. Bladder: As above, small stone is noted within the urinary bladder likely recently passed from the right ureter. Reproductive: Unremarkable as visualized. Bones/joints: Unremarkable. No acute fracture. Soft tissues: A small fat containing periumbilical hernia is identified. IMPRESSION: Mild hydronephrosis and hydroureter on the right with stone in the urinary bladder. This likely represents a recently passed right ureteral calculus. Tiny additional stone is noted within the lower pole of the left kidney.
[2020-08-15] MEDS ORDERED: Ciprofloxacin 500 MG Tab PO ONE (00:27)
[2020-08-15] MEDS ORDERED: Ketorolac 30 MG/ML SDV IM ONE (00:27)
== END 2020-08-15 00:50 | disposition home or self-care (01) ==
LOC: DL.ED 23:00
DX: N13.2 Hydronephrosis with renal and ureteral calculous obstruction (principal)
CPT/HCPCS: 36415; 74176; 80053; 80305-QW; 81001; 81025; 83605; 85025; 96372; 99284-25; A9270-GY; J1885